=== PATIENT | female | born 1955 | race Caucasian/White ===

== ENCOUNTER → 2016-08-17 | Outpatient (CLI) | payer BC ==
[~2016-08-17] MED LIST: AMLO-267 PO; ASPI-482 PO; CALC-61 PO; CINN500C PO; CITA40TA12 PO; EXEN10PE SQ; FOLI0.4T2 PO; GLIM4TAB PO; INSU100V8 SQ; IRBE150T PO; LORA2TAB PO; METF100010 PO; MULT-18 PO; OMEG1CAP32 PO; ROPI1TAB PO; ROPI1TAB2 PO; VITA40TA PO
--- NOTE | 2016-08-17 15:55 | RAD ---
DATE: 08/17/2016 EXAM: MAMMO GUZMAN SCREEN RT HISTORY: Previous left breast cancer COMPARISON: 08/12/2015 This study was interpreted with the benefit of Computerized Aided Detection (CAD). FINDINGS: 2-D and 3-D tomosynthesis imaging was performed in CC and MLO projections. There are scattered fibroglandular densities in the right breast in a somewhat nodular pattern. On the CC and cc tomogram images a small nodule is now seen laterally at approximately the 9:00 location. It measures approximately 8 mm in diameter. It is best delineated on CC tomogram image #42. It is less clearly visualized on the oblique views. No other new or enlarging breast densities are seen. There are unchanged microcalcifications which have a benign appearance. No suspicious microcalcifications have developed. IMPRESSION: Right breast nodule as described above. Spot compression cc and straight medial lateral mammograms are suggested for further evaluation, followed by right breast ultrasound. BI-RADS CATEGORY: 0 INCOMPLETE: NEEDS ADDITIONAL IMAGING EVALUATION AND/OR PRIOR MAMMOGRAMS FOR COMPARISON. RECOMMENDED FOLLOW-UP: ADD ADDITIONAL IMAGING PQRS compliance statement: Patient information was entered into a reminder system with a target due date for the next mammogram. Mammography is a sensitive method for finding small breast cancers, but it does not detect them all and is not a substitute for careful clinical examination. A negative mammogram does not negate a clinically suspicious finding and should not result in delay in biopsying a clinically suspicious abnormality. "Our facility is accredited by the [employer] Mammography Program."
== END | disposition home or self-care (01) ==
LOC: MAMMO 14:55
PROVIDERS: ATTEND Family Medicine
DX: Z12.31 Encounter for screening mammogram for malignant neoplasm of breast (principal)
CPT/HCPCS: 77052; 77061; G0202

== ENCOUNTER → 2016-08-31 | Outpatient (CLI) | payer BC ==
[~2016-08-31] MED LIST changes: +CALC-474 PO; -CALC-61 PO; -CINN500C PO; +CINN500C2 PO; -EXEN10PE SQ; +EXEN10PE3 SQ
--- NOTE | 2016-08-31 15:36 | RAD ---
DATE: 08/31/2016 EXAM: DIGITAL DIAGNOSTIC RT, BREAST RIGHT HISTORY: Mass seen on screening. COMPARISON: Screening examination 08/17/2016 This study was interpreted with the benefit of Computerized Aided Detection (CAD ). FINDINGS: Breast Density: The breast parenchyma unchanged relative to the screening exam. 2 cone compression CC images were obtained as well as an ML view. On the additional views a definite abnormality corresponding to that seen on the screening exam is not seen. Again a well-defined small mass is identified on the screening examination particularly on the rich images. Targeted ultrasound was performed. The examination was targeted to the lateral aspect of the right breast in the AP position. There is a benign-appearing 3 mm mass which would be compatible with the mammographic finding. IMPRESSION: Probable small benign nodule right breast. Follow-up CC image of the right breast is suggested in 6 months to document stability BI-RADS CATEGORY: 3 PROBABLE BENIGN FINDING(S-SHORT INTERVAL FOLLOW-UP SUGGESTED RECOMMENDED FOLLOW-UP: 6M 6 MONTH FOLLOW-UP PQRS compliance statement: Patient information was entered into a reminder system with a target due date 03/03/2017 for the next mammogram. Mammography is a sensitive method for finding small breast cancers, but it does not detect them all and is not a substitute for careful clinical examination. A negative mammogram does not negate a clinically suspicious finding and should not result in delay in biopsying a clinically suspicious abnormality. "Our facility is accredited by the [employer] Mammography [employer]." TENAD
== END | disposition home or self-care (01) ==
LOC: MAMMO 13:02
PROVIDERS: ATTEND Family Medicine
DX: R92.8 Other abnormal and inconclusive findings on diagnostic imaging of breast (principal)
CPT/HCPCS: 76641; G0206; 77065

== ENCOUNTER → 2017-06-19 | Outpatient (CLI) | payer BC ==
[~2017-06-19] MED LIST changes: -AMLO-267 PO; +AMLO1TAB43 PO
--- NOTE | 2017-06-19 13:48 | RAD ---
DATE: June 19, 2017 EXAM: DIGITAL DIAGNOSTIC RT HISTORY: Follow-up of small nodule of the lateral aspect of the right breast. History of left breast cancer treated with mastectomy in 1995. COMPARISON: 2015 and 2016 This study was interpreted with the benefit of Computerized Aided Detection (CAD). FINDINGS: The breast parenchyma is heterogeneously dense. The nodular density of the lateral aspect of the right breast is stable. There are no new dominant suspicious masses, suspicious microcalcifications or evidence of architectural distortion. Scattered calcifications of the right breast are stable. IMPRESSION: Stable nodule of the lateral aspect of the right breast consistent with a benign finding. Recommend annual screening mammography in one year. BI-RADS CATEGORY: 2 BENIGN FINDING RECOMMENDED FOLLOW-UP: 12M 12 MONTH FOLLOW-UP PQRS compliance statement: Patient information was entered into a reminder system with a target due date June 20, 2018 for the next mammogram. Mammography is a sensitive method for finding small breast cancers, but it does not detect them all and is not a substitute for careful clinical examination. A negative mammogram does not negate a clinically suspicious finding and should not result in delay in biopsying a clinically suspicious abnormality. "Our facility is accredited by the [employer] Mammography [employer]." The patient's breast density may affect the ability of mammography to detect breast cancer. There are 4 categories of breast density, A, B, C and D. Breast density A means that most of the breast tissue is replaced with adipose tissue and therefore is not dense. Breast density B means that the breast tissue is mildly dense and scattered. Breast density C means that the breast tissue is heterogeneously dense. Breast density D means that the breast tissue is very dense. Breast densities especially C and D may decrease the sensitivity of mammography to detect breast cancer. Therefore, the patient may benefit from 3-D breast mammography (3D breast tomography) as a part of their screening mammogram. Insurance may or may not pay for this additional imaging. The patient's breast density based on today's mammogram is category C.
== END | disposition home or self-care (01) ==
LOC: MAMMO 12:40
PROVIDERS: ATTEND Family Medicine
DX: N63.10 Unspecified lump in the right breast, unspecified quadrant (principal); Z85.3 Personal history of malignant neoplasm of breast
CPT/HCPCS: 77065

== ENCOUNTER → 2018-07-03 | Outpatient (CLI) | payer BC ==
--- NOTE | 2018-07-03 11:48 | RAD ---
DATE: 07/03/2018 EXAM: MAMMO GUZMAN SCREEN RT HISTORY: Previous left breast cancer COMPARISON: 06/19/2017 This study was interpreted with the benefit of Computerized Aided Detection (CAD). Breast Density: HETERO The breast parenchyma is heterogenously dense, which could reduce sensitivity of mammography. Breast parenchyma level C. FINDINGS: 2-D and 3-D tomosynthesis summation was performed in CC and MLO projections. The fibroglandular tissues are heterogeneous and somewhat nodular in character. No new or enlarging breast densities are seen. There are numerous microcalcifications which appear unchanged. The distribution suggests a benign etiology. IMPRESSION: Stable right mammograms without evidence of malignancy. BI-RADS CATEGORY: 2 BENIGN FINDING(S) RECOMMENDED FOLLOW-UP: 12M 12 MONTH FOLLOW-UP PQRS compliance statement: Patient information was entered into a reminder system with a target due date for the next mammogram. Mammography is a sensitive method for finding small breast cancers, but it does not detect them all and is not a substitute for careful clinical examination. A negative mammogram does not negate a clinically suspicious finding and should not result in delay in biopsying a clinically suspicious abnormality. "Our facility is accredited by the [employer] Mammography Program."
== END | disposition home or self-care (01) ==
LOC: MAMMO 10:21
PROVIDERS: ATTEND Family Medicine
DX: Z12.31 Encounter for screening mammogram for malignant neoplasm of breast (principal)
CPT/HCPCS: 77063; 77067

== ENCOUNTER → 2020-02-10 | Outpatient (CLI) | payer BC, MEDICARE ==
[~2020-02-10] MED LIST changes: -ROPI1TAB2 PO; +ROPI1TAB4 PO
--- NOTE | 2020-02-10 15:30 | RAD ---
DATE: 02/10/2020 10:05 AM EXAM: DIGITAL SCREEN RT W/CAD HISTORY: Screening. Personal history left breast cancer 1989 status post mastectomy. COMPARISON: 07/03/2018 CC and MLO views of the right breast were performed. Right breast tomosynthesis was performed in the CC and MLO projections. This study was interpreted with the benefit of Computerized Aided Detection (CAD). FINDINGS: Breast Density: HETERO The breast parenchyma Is heterogeneously dense, which could reduce sensitivity of mammography. Breast parenchyma level C Stable diffuse scattered calcifications, some thick and rodlike compatible with benign secretory calcifications, others diffuse scattered and punctate, compatible with fibrocystic change. No suspicious masses, microcalcifications or architectural distortion is present to suggest malignancy. The visualized axilla is unremarkable. IMPRESSION: No mammographic evidence of malignancy. BI-RADS CATEGORY: 2 BENIGN FINDING(S) RECOMMENDED FOLLOW-UP: 12M 12 MONTH FOLLOW-UP Annual screening mammography is recommended, unless clinically indicated sooner based on symptoms or change in physical exam. PQRS compliance statement: Patient information was entered into a reminder system with a target due date for the next mammogram. Mammography is a sensitive method for finding small breast cancers, but it does not detect them all and is not a substitute for careful clinical examination. A negative mammogram does not negate a clinically suspicious finding and should not result in delay in biopsying a clinically suspicious abnormality. "Our facility is accredited by the [employer] Mammography [employer]."
== END ==
LOC: MAMMO 09:58
PROVIDERS: ATTEND Family Medicine
DX: Z12.31 Encounter for screening mammogram for malignant neoplasm of breast (principal); Z85.3 Personal history of malignant neoplasm of breast; Z90.12 Acquired absence of left breast and nipple
CPT/HCPCS: 77067

== ENCOUNTER → 2021-02-28 | Outpatient (CLI) | payer MEDICARE ==
[~2021-02-28] MED LIST changes: -FOLI0.4T2 PO; +FOLI0.4T5 PO
--- NOTE | 2021-02-28 14:38 | RAD ---
Study: MG Digital Screening Unilateral W/rich History: Routine screening. Personal history of breast cancer status post left mastectomy. Comparison: Most recently on 02/10/2020. Technique: Routine 2D and 3D tomosynthesis digital mammogram views were obtained of the right breast. Interpretation was assisted with the use of computer-aided detection. Findings: Breast Tissue Density C: The breasts are heterogeneously dense, which may obscure small masses. Numerous microcalcifications are again identified without significant change. Also again noted are se veral small masses which have been seen on comparison exams at least in part from waxing/waning cysts . No newly developed suspicious mass or architectural distortion. IMPRESSION: No mammographic evidence of malignancy. Recommend routine screening mammography in one year. BI-RADS category 2: Benign. Patient information is entered into the reminder system with a target due date for the next screening mammogram. "Our facility is accredited by the [employer] Mammography Program." Electronically signed by: DAVON IBARRA MD (02/28/2021 2:35 PM) [id number]
== END ==
LOC: MAMMO 08:21
PROVIDERS: ATTEND Family Medicine
DX: Z12.31 Encounter for screening mammogram for malignant neoplasm of breast (principal)
CPT/HCPCS: 77063; 77067

== ENCOUNTER → 2021-03-07 | Outpatient (CLI) | payer MEDICARE ==
--- NOTE | 2021-03-07 13:05 | RAD ---
INDICATION: Screening for osteopenia/osteoporosis. Reason: OSTEOPORSIS / Spl. Instructions: / Histo ry: Postmenopausal evaluation COMPARISON: None. TECHNIQUE: Bone densitometry was performed through the lumbar spine and proximal femur. IMPRESSION: Lumbar Spine: BMD: 0.83 T-Score: -2.9 Range: Osteoporotic Proximal Femur: BMD: 0.84 T-Score: -1.0 Range: Osteopenic World Health Organization Criteria for Bone Density: T-Score: > -1.0: Normal Range < -1.0 to -2.5: Osteopenic Range < -2.5: Osteoporotic Range Electronically signed by: Villa Stack MD (03/07/2021 1:03 PM) [id number]
== END ==
LOC: DXRAD 10:10
PROVIDERS: ATTEND Family Medicine
DX: M81.0 Age-related osteoporosis without current pathological fracture (principal)
CPT/HCPCS: 77080